=== PATIENT | male | born 1965 | race Caucasian/White ===

== ENCOUNTER 2025-06-18 06:13 | Inpatient (IN) ==
--- NOTE | 2025-05-21 09:13 | PAT Medication Instructions ---
Medication Instructions Date of Service May 21, 2025 Home Medications aspirin 81 mg tablet,delayed release 81 mg PO DAILY cholecalciferol (vitamin D3) 25 mcg (1,000 unit) tablet (Vitamin D3) 0 mcg PO UD magnesium 200 mg tablet 400 mg PO HS ASK your surgeon for instructions cholecalciferol (vitamin D3) 25 mcg (1,000 unit) tablet (Vitamin D3) 0 mcg PO UD ASK your prescriber and surgeon aspirin 81 mg tablet,delayed release 81 mg PO DAILY Take evening before surgery magnesium 200 mg tablet 400 mg PO HS MORNING OF SURGERY: NOTHING TO EAT OR DRINK AFTER MIDNIGHT Other Notes If you have any questions please call us at [phone] or [phone] or [phone] or [phone]
--- NOTE | 2025-05-24 10:03 | Anesthesiology Consultation ---
Date of Service May 24, 2025 Assessment & Plan (1) Encounter for pre-operative examination: - awaiting surgeon ordered 05/14 medical clearance, Dr. Donna Blakely. - echo record from [place]. Chart Review Chart Review: Patient seen in Pre Admission Testing Teaching & Discussion Pre-Anesthesia Teaching/Discussion Notes: Instructed NPO after midnight before surgery, except medications with 15 cc of water. Medication instructions provided according to the PAT guidelines. History Surgery Operation Date: 06/04/25 07:45 Proposed Procedures p L3-L5 Decompression and Fusion - Zafar Payton DO Height/Weight Height: 5 ft 7 in Weight: 136.3 kg Allergies Allergy/AdvReac Type Severity Reaction Status Date / Time Penicillins Allergy Unknown SWELL UP, Verified 05/17/25 13:23 HIVES Medications Home Medications Medication Instructions Recorded Confirmed Last Taken aspirin 81 mg tablet,delayed 81 mg PO DAILY 05/17/25 05/17/25 Unknown release cholecalciferol (vitamin D3) 25 0 mcg PO UD 05/17/25 05/17/25 Unknown mcg (1,000 unit) tablet (Vitamin D3) magnesium 200 mg tablet 400 mg PO HS 05/17/25 05/17/25 Unknown Past Medical History Medical History (Updated 05/24/25 @ 11:54 by Chantel Grady PA-C) Bulging lumbar disc multiple History of alopecia History of COVID-19 (~2019) approx 2019. no hx hospitalization. History of diverticulitis last flare 2 years ago History of DVT (deep vein thrombosis) (~08/2024) left leg, a few weeks following left knee replacement sx (approx Aug 2024). tx with Eliquis and since d/c'd. History of pneumonia (10/2024) Osteoarthritis Patient denies h/o stroke, seizures, heart attack, heart failure, DM, HTN, or blood transfusions. Exercise / Class Metabolic Activity II 4-5 Yardwork/Stairs/Walk up hill (denies chest discomfort or shortness of breath with one flight of stairs) Past Family History Family History Other No family history of adverse response to anesthesia Past Surgical History Surgical History History of arthroscopy of left knee History of arthroscopy of right knee History of colonoscopy History of hernia surgery multiple - 1 sx included removal of gallbladder. History of laminectomy age 31 History of total left knee replacement (07/2024) History of total right hip replacement Hx of fusion of cervical spine full rom Past Anesthesia History Difficult Airway and No Family Hx of Anesthesia Complications History of PONV No Hx of PONV and No Hx of Motion Sickness Social History Smoking Status: Never smoker Do You Dip or Chew Tobacco: No Hx Alcohol Use: No Hx Substance Use: No substance use type: does not use Review of Systems snoring, denies witnessed apneas. Patient denies chest pain, shortness of breath, dyspnea on exertion, fever, chills, cough, wheezing, or palpitations. Physical Exam Vital Signs Vitals BP 132/81 P 75 TEMP 98.3 SP02 95% on RA RESP 18 Physical Patient resting comfortably in chair in no acute distress, alert and oriented, responding appropriately throughout visit Full cervical extension range of motion without pain TMD 3.5 finger breadths Mallampati Score 2 Dentition: intact, denies chipped or loose teeth, caps/crowns, implants or bridges Lungs: normal respiratory effort. Good air movement, clear throughout to auscultation, no adventitious breath sounds Cardiac: regular rate and rhythm, no murmurs noted Carotid arteries: negative bruit bilat Lab Results Anesthesia Preop Results Results Anesthesia Widget: WBC 8.38 K/ul (4.8-10.8) 05/24/25 Hgb 14.9 g/dl (14.0-18.0) 05/24/25 Hct 46.3 % (42.0-52.0) 05/24/25 Plt 202 K/uL (130-400) 05/24/25 Na 140 mmol/L (136-145) 05/24/25 K 4.0 mmol/L (3.5-5.1) 05/24/25 Cl 106 mmol/L (98-107) 05/24/25 CO2 29 mmol/L (21-32) 05/24/25 BUN 16 mg/dl (6-23) 05/24/25 Creat 0.72 mg/dl (0.6-1.4) 05/24/25 Glucose Level 120 mg/dl (70-99(Fasting)) H 05/24/25 PT 10.9 Seconds (9.0-12.0) 05/24/25 PTT 25 Seconds (21-31) 05/24/25 INR 1.0 (0.9-1.1) 05/24/25 Urine Color Yellow 05/24/25 Urine Appearance Clear (Clear) 05/24/25 Urine pH 6.0 (4.5-7.5) 05/24/25 Urine Specific [place] 1.024 (1.000-1.030) 05/24/25 Urine Protein Negative (Negative) 05/24/25 Urine Glucose (UA) Negative (Negative) 05/24/25 Urine Ketones Negative (Negative) 05/24/25 Urine Blood Negative (Negative) 05/24/25 Urine Nitrite Negative (Negative) 05/24/25 Urine Bilirubin Negative (Negative) 05/24/25 Urine Urobilinogen Negative (Negative) 05/24/25 Urine Leukocyte Esterase Negative (Negative) 05/24/25 Blood Type O Positive 05/24/25 Antibody Screen NEGATIVE 05/24/25 Testing Electrocardiogram Date: 05/24/25 NSR, rate 74 bpm Incomplete RBBB Chest X-Ray Date: 05/24/25 No acute findings.
[~2025-06-18 06:13] MED LIST: ACETAMINOPHEN 500 MG TAB PO SCH; CeleBREX 200 MG CAP PO SCH; GABAPENTIN 600 MG DOSE PO SCH; LR 15ML/HR IV SCH; LR 60ML/HR IV SCH; VANCOMYCIN HCL 2,000 MG in SODIUM CHLORIDE 0.9% 500 ML IV SCH
[2025-06-18] MEDS: CeleBREX 200 MG CAP PO SCH (06:46)
[2025-06-18] MEDS: ACETAMINOPHEN 500 MG TAB PO SCH (06:46)
[2025-06-18] MEDS: GABAPENTIN 600 MG DOSE PO SCH (06:47)
[2025-06-18] MEDS ORDERED: ROCURONIUM BROMIDE 10 MG/ML 5 ML VIAL IV ONE (06:49)
[2025-06-18] MEDS ORDERED: MIDAZOLAM HCL 1 MG/ML 2ML VIAL ONE (06:49)
[2025-06-18] MEDS ORDERED: GLYCOPYRROLATE 0.2 MG/ML VIAL ONE (06:49)
[2025-06-18] MEDS ORDERED: LIDOCAINE 2% 2 ML VIAL/AMP(20MG/ML) INFIL ONE (06:49)
[2025-06-18] MEDS ORDERED: PROPOFOL IV EMULSION 10 MG/ML 20 ML VIAL IV ONE (06:49)
[2025-06-18] MEDS ORDERED: ONDANSETRON INJ 2 MG/ML 2 ML VIAL ONE (06:49)
[2025-06-18] MEDS ORDERED: DEXAMETHASONE SOD INJ 4 MG/ML VIAL ONE (06:49)
[2025-06-18] MEDS ORDERED: SUGAMMADEX SODIUM 200 MG/2 ML VIAL IV ONE (06:56)
[2025-06-18] MEDS: LR 15ML/HR IV SCH (07:01)
[2025-06-18] MEDS: LR 60ML/HR IV SCH (07:01)
--- NOTE | 2025-06-18 07:54 | History & Physical Bridge Note ---
Date of Service June 18, 2025 History & Physical Bridge Note I have examined the patient, reviewed the History & Physical and in the interval since the performance of the History & Physical I have noted the following changes of clinical significance: no changes noted
--- NOTE | 2025-06-18 07:55 | History & Physical Report ---
Date of Service June 18, 2025 Assessment & Plan (1) Multilevel lumbosacral spondylosis with radiculopathy: Plan: L3-L5 decompression and fusion History of Present Illness Chief Complaint: Back and leg pain Primary Care Provider: Donna Blakely DO This is a 60-year-old male presents for persistent back and leg pain after failing course of nonoperative care is here for surgical invention. Allergies Allergy/AdvReac Type Severity Reaction Status Date / Time Penicillins Allergy Unknown SWELL UP, Verified 06/18/25 06:42 HIVES Home Medications Medication Instructions Recorded Confirmed Type aspirin 81 mg tablet,delayed 81 mg PO DAILY 05/17/25 06/18/25 History release cholecalciferol (vitamin D3) 25 0 mcg PO UD 05/17/25 06/18/25 History mcg (1,000 unit) tablet (Vitamin D3) magnesium 200 mg tablet 400 mg PO HS 05/17/25 06/18/25 History Past Med/Surg History Problem List (Updated 06/18/25 @ 07:55 by Zafar Payton DO) Multilevel lumbosacral spondylosis with radiculopathy Encounter for pre-operative examination Medical History (Updated 06/18/25 @ 07:55 by Zafar Payton DO) History of COVID-19 (~2019) approx 2019. no hx hospitalization. History of DVT (deep vein thrombosis) (~08/2024) left leg, a few weeks following left knee replacement sx (approx Aug 2024). tx with Eliquis and since d/c'd. Osteoarthritis History of pneumonia (10/2024) Bulging lumbar disc multiple History of diverticulitis last flare 2 years ago History of alopecia Surgical History History of arthroscopy of right knee History of arthroscopy of left knee History of hernia surgery multiple - 1 sx included removal of gallbladder. History of total left knee replacement (07/2024) History of total right hip replacement History of laminectomy age 31 Hx of fusion of cervical spine full rom History of colonoscopy Family History Other No family history of adverse response to anesthesia Social History Smoking Status: Never smoker Do You Dip or Chew Tobacco: No; Hx Alcohol Use: No Hx Substance Use: No Preferred Language: Bengali Communication Ability: Effective Charge Gang Weigher Required: No Beliefs That Will Affect Care: None Current Living Situation: Spouse and Family Current Living Situation Comment: and daughter Feels Safe at Home: Yes Assistive Devices: None Physical Exam Physical Exam: Patient is alert and oriented Heart regular rhythm Lungs clear Results & Data Results & Data Vital Signs (Past 12 Hours) Vital Signs Temp Pulse Resp BP Pulse Ox O2 Del Method 06/18/25 06:37 36.5 C 68 18 142/92 H 96 Room Air
[2025-06-18] MEDS: CLINDA 900 MG **Premixed Bag IV SCH (08:02)
[2025-06-18] MEDS ORDERED: KETAMINE HCL 10MG/ML SYR ONE (08:28)
[2025-06-18] MEDS: BUPIVACAINE/EPINEPHRINE 0.25% 1:200,000 30 ML VIAL ONE ×2 (08:32→10:24)
[2025-06-18] MEDS: ceFAZolin 330 MG/ML 1 GM VIAL ONE (08:32)
[2025-06-18] MEDS: FLOSEAL HEMOSTATIC MATRIX 10ML TOP ONE (10:25)
--- NOTE | 2025-06-18 10:42 | Fluoroscopy Report ---
FL lumbar spine 2-3V CLINICAL HISTORY: L3-L5 DECOMP AND FUSION COMPARISON STUDY: None FLUOROSCOPY TIME: 16 seconds FLUOROSCOPY IMAGES: 2 EXPOSURE DOSE: 17 mGy FINDINGS: Fluoroscopy was provided for lumbar surgery. IMPRESSION: Intraoperative fluoroscopy. ACT 112: Negative or not required by law. Electronically signed by: Michael Jesus M.D. 06/18/2025 10:40 AM
--- NOTE | 2025-06-18 10:45 | Operative Report ---
Post Operative Report Pre & Post Diagnosis Operation Date: 06/18/25 07:45 Pre-Op Diagnosis: #1 lumbar spondylosis with radiculopathy #2 lumbar spinal stenosis #3 morbid obesity Post-Op Diagnosis: Same I identified the patient and participated in the time-out.: Yes Procedure Operation Date: 06/18/25 07:45 Actual Procedures #1 revision decompression with bilateral medial facetectomies and foraminotomies L3-L4 L4-L5. #2 posterior spinal fusion L3-L4 L4-L5. #3 placement posterior instrumentation L3-L5 using Franco. #4 interbody fusion L3-L4 L4-L5 #5 placement of Spira 14 x 26 mm x 2 and L3-L4 and 13 x 26 mm at L4-L5. #6 placement of Koros combined with Proteus bone graft and posterior gutters and os design in the interbody space. #7 application of versa wrap of the exposed dura. Surgeon Zafar Payton, DO Riding Teacher Edna Downs Estimated Blood Loss 1,000 Findings See Below The patient is 5 foot 7 weighing over 135 kg with a BMI in excess of 46. The patient's body habitus combined with an EBL of greater than 1000 cc created significant technical difficulty. He also had significant epidural adhesions from the previous decompression adding significant time to the procedure. This added at least 40% increased operative time. I am recommending a modifier 22. Specimens None Indications This is a 60-year-old male who presents by much diagnosis of failed course of nonoperative care is here for surgical mention. Description of Procedure Patient was met with identified informed consent obtained. Patient was then taken to the operative suite underwent intubation placed in a prone position on the Luciano table atop the Benjamin frame. All bony prominences are well-padded eyes inspected to ensure no external pressure placed upon them. This point the lumbar spine was prepped and draped in normal sterile fashion. Sharp dissection with the assistance of Bovie cautery was performed down to and exposing the remaining lamina and transverse processes of L3 L4-5 bilaterally. From a caudal to cephalad fashion revision complete laminectomy of L4 was performed including bilateral medial facetectomies and foraminotomies followed by complete laminectomy of L3 with bilateral medial facetectomies and foraminotomies addressing severe subarticular and foraminal stenosis. Pedicle screws were then placed at L3-L4-L5 bilaterally with assistance of fluoroscopy and the properly sized qing placed. By way of a transforaminal approach on the left a complete discectomy of L4-L5 was performed endplates guided to subcortical bleeding bone and a 13 x 26 mm Spira cage tapped in position. Then approached L3-L4 by way of transfer from approach left a discectomy was performed endplates guided to subcortical bleeding bone and a 14 x 26 mm Spira cage tapped in position. I then proceeded to the right transforaminal region at L3-L4. Again discectomy performed. Endplates guided to subcortical bleeding bone and a second 14 x 26 mm Spira cage tapped into position. Please note all cages were packed with os design bone graft. I was unable to place a second cage at L4-L5 secondary to marked adhesions along the traversing and exiting nerve roots. The rods were then compressed locked in final position bilaterally. The transverse processes of L3 L4-5 burred to subcortical bleeding bone. Koros combined with Proteus bone graft placed in posterior gutters. Versa wrap placed over the exposed dura. 15 round TEMO drain inserted. Incision was then closed with 1 Vicryl the fascia 2-0 Vicryl subcutaneously and 4 Monocryl for final skin closure. Steri- Strips sterile dressing placed. Patient waken taken to PACU in stable condition. Please note Edna Downs was present of the entire procedure and on the patient positioning complex portion of the surgery and final skin closure. I attest to the content of the Intraoperative Record and any orders documented therein. Any exceptions are noted below.
[2025-06-18] MEDS ORDERED: HYDROmorphone INJ 1 MG/ML SYRINGE IV PRN ×2 (11:02→12:13)
[2025-06-18] MEDS ORDERED: ATROPINE SULFATE 0.1 MG/ML 10ML SYR IV PRN (11:02)
[2025-06-18] MEDS ORDERED: NALOXONE HCL 0.4 MG/1 ML VIAL/CARP IV PRN ×2 (11:02→12:13)
--- NOTE | 2025-06-18 11:24 | Anesthesiology Progress Note ---
Date of Service June 18, 2025 Anesthesia Post Procedure Vital Signs Vital Signs: Temp Pulse Resp BP Pulse Ox O2 Del Method O2 Flow Rate 06/18/25 11:20 77 18 148/94 H 94 Oxymask 5 06/18/25 11:10 82 13 134/94 94 Oxymask 9 06/18/25 11:00 70 15 134/82 93 Oxymask 9 06/18/25 10:53 36.6 C 75 21 128/74 93 Oxymask 9 06/18/25 06:37 36.5 C 68 18 142/92 H 96 Room Air Transfer of Care Handoff Completed per policy Notes Mental Status: alert / awake / arousable and participated in evaluation Patient Amnestic to Procedure: Yes Nausea / Vomiting: adequately controlled Pain: adequately controlled Airway Patency, RR, SpO2: stable & adequate BP & HR: stable & adequate Hydration State: stable & adequate Anesthetic Complications: no major complications apparent and Pt Satisfied with anesthetic care
[2025-06-18] MEDS ORDERED: PROMETHAZINE 12.5 MG/50.5 ML BAG IV PRN (12:13)
[2025-06-18] MEDS ORDERED: LORazepam Inj 0.5 MG in SYRINGE 0.25 ML IV PRN (12:13)
[2025-06-18] MEDS ORDERED: ACETAMINOPHEN 1,000 MG/100 ML VIAL IV PRN (12:13)
[2025-06-18] MEDS ORDERED: ONDANSETRON INJ 2 MG/ML 2 ML VIAL IV PRN (12:13)
[2025-06-18] MEDS ORDERED: LORazepam 0.5 MG TAB PO PRN (12:13)
[2025-06-18] MEDS ORDERED: HYDROmorphone INJ 0.5 MG/0.5 ML SYR IV PRN (12:13)
[2025-06-18] MEDS ORDERED: FAMOTIDINE 20 MG TAB PO PRN (12:13)
[2025-06-18] MEDS ORDERED: ALUMINUM/MAGNESIUM SUSP 30 ML UDC PO PRN (12:13)
[2025-06-18] MEDS ORDERED: diphenhydrAMINE Capsule 25 MG CAP PO PRN (12:13)
[2025-06-18] MEDS ORDERED: METOCLOPRAMIDE HCL INJ 5 MG/ML 2 ML VIAL IV PRN (12:13)
[2025-06-18] MEDS ORDERED: DO NOT ADMINISTER FLU VACCINE PRN (12:13)
[2025-06-18] MEDS ORDERED: DO NOT ADMINISTER PNEUMOCOCCAL VACCINE PRN (12:13)
[2025-06-18] MEDS ORDERED: SOD PHOSPHATE/SOD BIPHOSPHATE ENEMA 132 ML BTL PR PRN (12:13)
[2025-06-18] MEDS ORDERED: MAGNESIUM HYDROXIDE SUSP 30 ML UDC PO PRN (12:13)
[2025-06-18] MEDS ORDERED: ONDANSETRON 4 MG OD TAB PO PRN (12:13)
[2025-06-18] MEDS ORDERED: ACETAMINOPHEN 500 MG TAB PO PRN (12:13)
--- NOTE | 2025-06-18 13:12 | Consultation ---
Date of Consultation June 18, 2025 Assessment & Plan (1) Multilevel lumbosacral spondylosis with radiculopathy: (2) Encounter for pre-operative examination: (3) Osteoarthritis: (4) History of DVT (deep vein thrombosis): Plan 60 yo male with pmhx of hx of DVT, osteoarthritis presenting for lumbar decompression, revision, and fusion. #Multilevel Lumbosacral Spondylosis with Radiculopathy #S/p Decompression, Revision, Fusion of Lumbar Spine -POD 1, 1000 cc blood loss, technically difficult procedure per OR note -no immediate post operative complications Plan: -prn list reduced to reduce polypharmacy and overlapping prns -incentive spirometer ordered -DVT prophylaxis per ortho, restarting aspirin timing per ortho -trend creatinine, WBC, Hgb daily -PT/OT per ortho #Hx of DVT -s/p eliquis treatment, stopped since then -will need strong DVT prophylaxis post operatively #Class III Obesity -weight management f/u outpatient -recommend sleep study outpatient I spent a total of 60 minutes in direct patient care, including [id number] time with the patient and/or family, reviewing medical records, ordering and reviewing diagnostic tests, and coordinating care with other healthcare providers. This time includes: history taking, physical examination, medical decision making, counseling, ECG interpretation, imaging interpretation, lab interpretation, orders, and education, excluding time spent in the performance of separately billed services. History of Present Illness Requesting Physician: Dr. Payton Reason for Consultation: -post op medicine consult Attending Physician: Zafar Payton, DO History of Present Illness 60 yo male with pmhx of hx of DVT, osteoarthritis presenting for lumbar decompression, revision, and fusion. No prior admissions at [facility]. In the OR, performed: revision decompression with bilateral medial facetectomies and foraminotomies L3-L4 L4-L5, posterior spinal fusion L3-L4 L4-L5, placement posterior instrumentation L3-L5 using Franco, interbody fusion L3-L4 L4-L5. Procedure was complex and a liter of blood was lost during the procedure. No immediate post operative complications noted. Patient seen and examined at bedside. present. Patient doing well post operatively. States he has mild pain right now after the procedure. Moving legs well. No post op nausea or vomiting noted. Per patient TEMO drain is heavily draining. Allergies Allergy/AdvReac Type Severity Reaction Status Date / Time Penicillins Allergy Unknown SWELL UP, Verified 06/18/25 06:42 HIVES Home Medications Medication Instructions Recorded Confirmed Type aspirin 81 mg tablet,delayed 81 mg PO DAILY 05/17/25 06/18/25 History release cholecalciferol (vitamin D3) 25 0 mcg PO UD 05/17/25 06/18/25 History mcg (1,000 unit) tablet (Vitamin D3) magnesium 200 mg tablet 400 mg PO HS 05/17/25 06/18/25 History Patient History Medical History (Updated 06/18/25 @ 07:55 by Zafar Payton DO) History of COVID-19 (~2019) approx 2019. no hx hospitalization. History of DVT (deep vein thrombosis) (~08/2024) left leg, a few weeks following left knee replacement sx (approx Aug 2024). tx with Eliquis and since d/c'd. Osteoarthritis History of pneumonia (10/2024) Bulging lumbar disc multiple History of diverticulitis last flare 2 years ago History of alopecia Surgical History History of arthroscopy of right knee History of arthroscopy of left knee History of hernia surgery multiple - 1 sx included removal of gallbladder. History of total left knee replacement (07/2024) History of total right hip replacement History of laminectomy age 31 Hx of fusion of cervical spine full rom History of colonoscopy Family History Other No family history of adverse response to anesthesia Social History Smoking Status: Never smoker Do You Dip or Chew Tobacco: No; Hx Alcohol Use: No Hx Substance Use: No Preferred Language: Citizen Of [place] Communication Ability: Effective Deep Tissue Massage Therapist Required: No Beliefs That Will Affect Care: None Current Living Situation: Spouse and Family Current Living Situation Comment: and daughter Feels Safe at Home: Yes Assistive Devices: None Review of Systems Review of Systems: -negative unless listed above Physical Exam Physical Exam: Gen: A&O 3 NAD HEENT: NCAT, EOMI, not icteric. External ears normal. No rhinorrhea. Moist mucous membranes. Neck: Supple, full range of motion, no observable masses, No meningeal sign. Lungs: No Respiratory distress. CV: RRR, no edema. Abdomen: Soft, nondistended, No rebound tenderness. MSK: s/p procedure, TEMO drain in place Skin: No rashes, petechiae, lesions. Normal color per patient. Neuro: Normal Gait, Grossly intact. Psych: Appropriate for situation. Results & Data Vital Signs (Past 12 Hours) Vital Signs Temp Pulse Pulse Resp BP Pulse Ox O2 Del Method 06/18/25 12:45 36.3 C L 68 17 146/82 H 94 Nasal Cannula 06/18/25 12:20 74 17 137/98 94 Nasal Cannula 06/18/25 12:05 71 15 145/94 H 93 Nasal Cannula 06/18/25 11:50 72 17 144/97 H 93 Nasal Cannula 06/18/25 11:35 82 17 129/89 92 Nasal Cannula 06/18/25 11:20 36.5 C 77 18 148/94 H 94 Oxymask 06/18/25 11:10 82 13 134/94 94 Oxymask 06/18/25 11:00 70 15 134/82 93 Oxymask 06/18/25 10:53 36.6 C 75 21 128/74 93 Oxymask 06/18/25 06:37 36.5 C 68 18 142/92 H 96 Room Air O2 Flow Rate 06/18/25 12:45 2 06/18/25 12:20 2 06/18/25 12:05 2 06/18/25 11:50 2 06/18/25 11:35 2 06/18/25 11:20 5 06/18/25 11:10 9 06/18/25 11:00 9 06/18/25 10:53 9 06/18/25 06:37 Medications Administered Acetaminophen (Acetaminophen 500 Mg Tab) 1,000 mg PO PREOP NANCY Stop: 06/18/25 18:00 Last Admin: 06/18/25 06:46 Dose: 1,000 mg Documented By: RUCHI Celecoxib (Celebrex 200 Mg Cap) 200 mg PO PREOP NANCY Stop: 06/18/25 18:00 Last Admin: 06/18/25 06:46 Dose: 200 mg Documented By: RUCHI Gabapentin (Gabapentin 600 Mg Dose) 600 mg PO PREOP NANCY Stop: 06/18/25 18:00 Last Admin: 06/18/25 06:47 Dose: 600 mg Documented By: RUCHI Lactated Ringer's (Lr) 1,000 mls @ 15 mls/hr IV .Q24H NANCY Stop: 06/19/25 05:59 Last Infusion: 06/18/25 08:00 Dose: Infused Documented By: Admin: 06/18/25 07:01 Dose: 15 mls/hr Documented By: RUCHI Lactated Ringer's (Lr) 1,000 mls @ 60 mls/hr IV .[id number] NANCY Stop: 06/18/25 22:39 Last Admin: 06/18/25 07:01 Dose: Not Given Documented By: RUCHI Clindamycin Phosphate (Cleocin/D5w) 900 mg in 50 mls @ 100 mls/hr IV PREOP NANCY; Protocol Stop: 06/18/25 18:00 Last Infusion: 06/18/25 08:32 Dose: Infused Documented By: Admin: 06/18/25 08:02 Dose: 100 mls/hr Documented By: [id number] Sodium Chloride (Nss) 1,000 mls @ 150 mls/hr IV .[id number] NANCY Stop: 06/21/25 12:12 Last Admin: 06/18/25 13:53 Dose: 150 mls/hr Documented By: LAURA Oxycodone HCl (Oxycodone Hcl Ir 5 Mg Tab (Immediate Release)) 5 - 10 mg PO Q4H PRN PRN Reason: MOD/SEV Pain & Pre PT Stop: 07/02/25 12:12 Last Admin: 06/18/25 13:53 Dose: 10 mg Documented By: LAURA
[2025-06-18] MEDS: SODIUM CHLORIDE 0.9% 1,000 ML IV SCH (13:53)
[2025-06-18] MEDS ORDERED: INFLUENZA VACC TS2025-26(6m+)/PF (IIV3) 0.5mL Syr IM ONE (14:18)
--- NOTE | 2025-06-18 15:20 | Anesthesiology Progress Note ---
Date of Service June 18, 2025 Anesthesia Post Procedure Vital Signs Vital Signs: Temp Pulse Pulse Resp BP Pulse Ox O2 Del Method 06/18/25 14:43 36.4 C L 83 18 157/81 H 94 Room Air 06/18/25 13:41 36.5 C 77 16 139/76 95 Nasal Cannula 06/18/25 13:12 36.4 C L 73 16 130/73 95 Room Air 06/18/25 12:45 36.3 C L 68 17 146/82 H 94 Nasal Cannula 06/18/25 12:20 74 17 137/98 94 Nasal Cannula 06/18/25 12:05 71 15 145/94 H 93 Nasal Cannula 06/18/25 11:50 72 17 144/97 H 93 Nasal Cannula 06/18/25 11:35 82 17 129/89 92 Nasal Cannula 06/18/25 11:20 36.5 C 77 18 148/94 H 94 Oxymask 06/18/25 11:10 82 13 134/94 94 Oxymask 06/18/25 11:00 70 15 134/82 93 Oxymask 06/18/25 10:53 36.6 C 75 21 128/74 93 Oxymask 06/18/25 06:37 36.5 C 68 18 142/92 H 96 Room Air O2 Flow Rate 06/18/25 14:43 06/18/25 13:41 2 06/18/25 13:12 06/18/25 12:45 2 06/18/25 12:20 2 06/18/25 12:05 2 06/18/25 11:50 2 06/18/25 11:35 2 06/18/25 11:20 5 06/18/25 11:10 9 06/18/25 11:00 9 06/18/25 10:53 9 06/18/25 06:37 Pain Intensity Back: Pain Intensity: 4 Transfer of Care Handoff Completed per policy Notes Mental Status: alert / awake / arousable and participated in evaluation Patient Amnestic to Procedure: Yes Nausea / Vomiting: adequately controlled Pain: adequately controlled Airway Patency, RR, SpO2: stable & adequate BP & HR: stable & adequate Hydration State: stable & adequate Anesthetic Complications: no major complications apparent and Pt Satisfied with anesthetic care
[2025-06-18] MEDS: DOCUSATE SODIUM/SENNA 50/8.6MG TAB PO SCH (20:39)
[2025-06-18] MEDS: MAGNESIUM OXIDE 400 MG TAB PO SCH (20:40)
[2025-06-19] MEDS: POLYETHYLENE (MIRALAX) 17 GM PACK PO SCH (06:14)
[2025-06-19 06:27] LABS: Hematocrit (blood only) 36.3 % (42.0-52.0); Hemoglobin 12.3 g/dL (14.0-18.0); Immature Granulocytes # (auto) 0.06 K/uL (0.01-0.20); Immature Granulocytes % (auto) 0.5 %; Mean Corpuscular Hemoglobin 31.1 pg (25.0-34.0); Mean Corpuscular Volume 91.9 fL (80.0-100.0); Platelet Count 175 K/uL (130-400); RDW Standard Deviation 40.7 fL (36.4-46.3); Red Blood Count 3.95 M/uL (4.70-6.10); White Blood Count 12.08 K/ul (4.8-10.8)
[2025-06-19 07:04] LABS: Anion Gap 5.0 (3-11); Blood Urea Nitrogen 14.0 mg/dl (6-23); Calcium 8.7 mg/dl (8.6-10.3); Carbon Dioxide 28.0 mmol/L (21-32); Chloride 105.0 mmol/L (98-107); Creatinine Clr Calc Pharmacy 153.4 ml/min; Glucose 140.0 mg/dl (70-99(Fasting)); Potassium 4.3 mmol/L (3.5-5.1); Sodium 138.0 mmol/L (136-145)
[2025-06-19] MEDS: dexAMETHasone 6 MG in SYRINGE 0 ML IV SCH (07:26)
[2025-06-19] MEDS: ASPIRIN 81 MG ECTAB PO SCH (07:27)
--- NOTE | 2025-06-19 10:06 | Orthopedic Progress Note ---
Date of Service June 19, 2025 Assessment & Plan (1) Multilevel lumbosacral spondylosis with radiculopathy: Plan: At this time we will continue physical therapy monitor his TEMO output hopefully discharge home the next few days. Admission and Anticipated Discharge Date Admission Date: June 18, 2025 Subjective Patient's back pain is controlled leg symptoms markedly improved. Physical Exam Physical Exam: Patient is in the chair at the bedside. He is comfortable. Distracted testing. Results & Data Vital Signs (Past 12 Hours) Vital Signs Temp Pulse Resp BP BP Pulse Ox O2 Del Method 06/19/25 07:18 37.0 C 68 18 129/76 94 Room Air 06/19/25 03:00 36.7 C 72 18 110/66 95 Room Air 06/18/25 23:00 36.8 C 73 18 116/66 96 Room Air Queries Orthopedic Spine Obesity: Yes
--- NOTE | 2025-06-19 15:49 | Hospitalist Progress Note ---
Date of Service June 19, 2025 Assessment & Plan (1) Multilevel lumbosacral spondylosis with radiculopathy: (2) Encounter for pre-operative examination: (3) Osteoarthritis: (4) History of DVT (deep vein thrombosis): Plan 60 yo male with pmhx of hx of DVT, osteoarthritis presenting for lumbar decompression, revision, and fusion. Multilevel Lumbosacral Spondylosis with Radiculopathy S/p Decompression, Revision, Fusion of Lumbar Spine by on 06/18/25 Postoperative acute blood loss anemia Pain control, wound care as per primary team Continue bowel regimen incentive spirometer ordered No indication for blood transfusion currently Continue PT OT Hx of DVT -s/p Eliquis treatment, stopped since then Class III Obesity -weight management f/u outpatient -recommend sleep study outpatient DVT Px: SCDs CODE STATUS Full code Disposition As per primary team Admission and Anticipated Discharge Date Admission Date: June 18, 2025 Subjective Patient is seen and examined at bedside Denies any significant back pain at surgical site + Flatus, no BM today Denies any chest pain, dyspnea, nausea, vomiting, abdominal pain Review of Systems Review of Systems: All systems reviewed & are unremarkable except as noted in Subjective Physical Exam Physical Exam: Physical Exam: Vitals signs as noted above General Appearance:Obese, no apparent distress Head: normocephalic, Atraumatic Eyes: normal inspection, EOMI Neck: supple, Trachea midline Respiratory/Chest: Normal breath sounds, CTA, No accessory muscle use Cardiovascular: S1, S2, No murmur Abdomen/GI:Soft, Non tender, Bowel sounds present Back: Surgical dressing,+drain Extremities/Musculoskeletal:normal inspection, Trace pedal edema Neurologic/Psych:AAOX3, grossly no focal neurological deficits Skin: normal color, warm Results & Data Results & Data Vital Signs (Past 12 Hours) Vital Signs Temp Pulse Resp BP Pulse Ox O2 Del Method 06/19/25 14:53 37.0 C 75 18 135/72 93 Room Air 06/19/25 11:22 37.1 C 74 18 147/85 H 96 Room Air 06/19/25 07:18 37.0 C 68 18 129/76 94 Room Air Laboratory Results Short CBC 06/19/25 Range/Units 05:54 WBC 12.08 H (4.8-10.8) K/ul Hgb 12.3 L (14.0-18.0) g/dL Hct 36.3 L (42.0-52.0) % Plt Count 175 (130-400) K/uL BMP 06/19/25 05:54 Sodium 138 Potassium 4.3 Chloride 105 Carbon Dioxide 28 BUN 14 Creatinine 0.68 Glucose 140 H Calcium 8.7
[2025-06-20 06:16] LABS: Hematocrit (blood only) 33.1 % (42.0-52.0); Hemoglobin 11.6 g/dL (14.0-18.0); Mean Corpuscular Hemoglobin 32.0 pg (25.0-34.0); Mean Corpuscular Volume 91.4 fL (80.0-100.0); Platelet Count 157 K/uL (130-400); RDW Standard Deviation 40.6 fL (36.4-46.3); Red Blood Count 3.62 M/uL (4.70-6.10); White Blood Count 11.07 K/ul (4.8-10.8)
[2025-06-20 06:33] LABS: Anion Gap 6.0 (3-11); Blood Urea Nitrogen 16.0 mg/dl (6-23); Calcium 9.0 mg/dl (8.6-10.3); Carbon Dioxide 29.0 mmol/L (21-32); Chloride 103.0 mmol/L (98-107); Creatinine Clr Calc Pharmacy 139.1 ml/min; Glucose 106.0 mg/dl (70-99(Fasting)); Magnesium 2.0 mg/dl (1.7-2.4); Potassium 4.1 mmol/L (3.5-5.1); Sodium 138.0 mmol/L (136-145)
[2025-06-20 08:48] VITALS: BP 152/91; PULSE 85; RESP 18; TEMP 98.4; O2SAT 94
--- NOTE | 2025-06-20 10:28 | Discharge Summary ---
Date of Service June 20, 2025 Admission HPI Per Admitting Provider This is a 60-year-old male presents for persistent back and leg pain after failing course of nonoperative care is here for surgical invention. Admission Exam (Per Admitting) Constitutional well developed Eyes normal visual andrade by confrontation ENMT external ear and nose normal, oropharynx normal Neck trachea midline, no thyromegaly Respiratory normal respiratory effort Cardiovascular Extremities: normal capillary refill Gastrointestinal (Abdomen) Inspection/Auscultation: abdomen normal to inspection Musculoskeletal Spine: + limited thoraco-lumbar ROM and + pain with thoraco-lumbar ROM Extremities: extremities normal to inspection and strength 5/5 throughout Skin no rashes, warm and dry normal turgor Neurologic normal touch/pain/proprioception and moves all extremities Psychiatric A+Ox3, euthymic affect Eye Contact: good eye contact Discharge Data Consultations 06/18/25 12:13 Consult Hospitalist Routine Procedures Performed Operation Date: 06/18/25 07:45 Actual Procedures p L3-L5 Decompression and Fusion(Not Applicable) - Zafar Payton DO Hospital Course (1) Multilevel lumbosacral spondylosis with radiculopathy: Homero is being discharged home on postoperative day 2 status post lumbar decompression and fusion. Pain has greatly improved compared to preoperative status. He is up and ambulatory with physical therapy. He has had a bowel movement. No other complaints. Discharge Instructions ACTIVITY RECOMMENDATIONS: SELF CARE INSTRUCTIONS AFTER THORACIC/LUMBAR FUSIONS 1. You may walk to your tolerance. It is good exercise for your legs and back. Expect some back and intermittent leg aches and pains. 2. You may perform "counter-top" level activities (make a sandwich, liborio with a project, etc.). 3. No bending or lifting of more than 10 pounds or back twisting of any nature (roll like a log when turning in bed). 4. You may ride in a car for 20-30 minutes at a time. No driving until after your first visit with your doctor. 5. Frequent changes of position and restricting sitting to 30 minutes at a time will help limit the amount of back spasms and stiffness you may experience. 6. You may discontinue the use of ambulatory aids (cane, crutches, etc.) once your strength and confidence allow. 7. You may capacitor inspector the shower and let water strike your incision when you arrive home at least once daily. Do not take a tub bath, sit in a hot tub or go into a swimming pool until after your first recheck in the office. 8. You may resume previous diet. SPECIAL CARE INSTRUCTIONS: VERY IMPORTANT TO READ AND REVIEW A. Your surgical incision has been closed with a cosmetic suture under the skin that will dissolve in about 6 weeks. In 14 days, you can use a pair of clean scissors and cut the suture that is left outside of the skin at the ends of your incision. 1. The small skin tapes can be removed 7 days after surgery if they have not fallen off by that point. 2. You may keep the wound open to air as much as possible to promote healing after post-op day number 5 unless told otherwise by your doctor. 3. If you think the wound looks like it is becoming infected (redness or worsening drainage) and/or you are experiencing fever, chill or worsening back pain and muscle spasms, contact the office so that we may evaluate you as soon as possible. B. Complications are uncommon, but please contact us if you have any signs or symptoms of: 1. wound infection (fever higher than 102.5 degrees F, redness, separation of wound, drainage, or increasing pain from the incision) 2. blood clots in legs (pain, swelling, redness and warmth in legs) 3. urinary tract infection (fever higher than 102.5 degrees F, burning upon urination or increased frequency of urination) 4. nerve problems (inability to walk on your toes or heels, numbness, loss of bowel or bladder control) 5. any other symptoms that concern you C. Please call the office at if you have any concerns or questions about your operation or recovery. D. No smoking! Smoking drastically decreases the chance of a solid fusion. E. Do not take any anti-inflammatory medications (Indocin, Advil, Motrin, Aspirin, Naprosyn, etc.) as these may inhibit the chance of a solid fusion. Tylenol is okay to take for pain. MANAGING PAIN AFTER SPINAL SURGERY 1. Narcotic medication is intended for short-term use and will be provided for surgical pain. Surgical pain usually lasts for a period of 4-6 weeks. Narcotic medication includes Percocet, Vicodin, Darvocet, Tylenol #3 or Lortab. 2. Longer-term pain is more appropriately treated with non-narcotic medication such as Tylenol ES. 3. Muscle spasm is not appropriately treated with narcotics. Muscle relaxers such as Soma, Flexeril or Skelaxin can be used along with Tylenol ES. 4. Remember that we all live with some "aches and pains". This is not unusual or uncommon after an injury or as we get older. a. Back pain is expected and may include muscle spasms for 4 to 6 weeks after surgery. The pain should gradually improve. If the pain worsens for no apparent reason, please contact the office. b. Intermittent leg pain may also be experienced and should not be concerned about unless it worsens for no apparent reason. If so, please contact the office. 5. We will provide appropriate medication within the normal guidelines of their prescribed use. We will also be very cautious and aware of potential abuse and extended duration of patients' medication needs. a. Pain medications are for your comfort and to assist with sleep and rest so that the tissue can heal. They are not provided in order to return to normal activity and should not be used through the day. To do so or worsening pain at night can result from ongoing tissue damage and development of tolerance to the prescribed medicine. 6. Please allow 2-3 days to process refills. Prescriptions will not be mailed but must be picked up at the office. FOLLOW UP VISIT: Keep your scheduled follow-up appointment. Any questions, please call the office at .
[2025-06-20] MEDS ORDERED: INFLUENZA VACC TS2025-26(65y+)/PF (IIV3) 0.5mL Syr IM ONE (10:47)
--- NOTE | 2025-06-20 10:52 | Hospitalist Progress Note ---
Date of Service June 20, 2025 Assessment & Plan (1) Multilevel lumbosacral spondylosis with radiculopathy: (2) Encounter for pre-operative examination: (3) Osteoarthritis: (4) History of DVT (deep vein thrombosis): Plan 60 yo male with pmhx of hx of DVT, osteoarthritis presenting for lumbar decompression, revision, and fusion. Multilevel Lumbosacral Spondylosis with Radiculopathy S/p Decompression, Revision, Fusion of Lumbar Spine by on 06/18/25 Postoperative acute blood loss anemia Pain control, wound care as per primary team Continue bowel regimen Continue incentive spirometer No indication for blood transfusion currently Continue PT OT Had bowel movement today Advised to follow-up with PCP on discharge Hx of DVT -s/p Eliquis treatment, stopped since then Class III Obesity -weight management f/u outpatient -recommend sleep study outpatient DVT Px: SCDs CODE STATUS Full code Disposition As per primary team Admission and Anticipated Discharge Date Admission Date: June 18, 2025 Subjective Patient is seen and examined at bedside States feeling well today Eager to get discharged Had bowel movement today Denies any significant pain at surgical site Also denies any chest pain, dyspnea, nausea, vomiting, abdominal pain Review of Systems Review of Systems: All systems reviewed & are unremarkable except as noted in Subjective Physical Exam Physical Exam: Physical Exam: Vitals signs as noted above General Appearance:Obese, no apparent distress Head: normocephalic, Atraumatic Eyes: normal inspection, EOMI Neck: supple, Trachea midline Respiratory/Chest: Normal breath sounds, CTA, No accessory muscle use Cardiovascular: S1, S2, No murmur Abdomen/GI:Soft, Non tender, Bowel sounds present Back: Surgical dressing,+drain Extremities/Musculoskeletal:normal inspection, Trace pedal edema Neurologic/Psych:AAOX3, grossly no focal neurological deficits Skin: normal color, warm Results & Data Results & Data Vital Signs (Past 12 Hours) Vital Signs Temp Pulse Resp BP Pulse Ox O2 Del Method 06/20/25 08:47 36.9 C 85 18 152/91 H 94 Room Air 06/20/25 00:21 36.6 C 81 14 134/82 95 Room Air Laboratory Results Short CBC 06/20/25 Range/Units 05:51 WBC 11.07 H (4.8-10.8) K/ul Hgb 11.6 L (14.0-18.0) g/dL Hct 33.1 L (42.0-52.0) % Plt Count 157 (130-400) K/uL BMP 06/20/25 05:51 Sodium 138 Potassium 4.1 Chloride 103 Carbon Dioxide 29 BUN 16 Creatinine 0.75 Glucose 106 H Calcium 9.0
== END 2025-06-20 12:12 | disposition home or self-care (01) | DRG 427 ==
LOC: ASU 06:13 → 3E 10:49